=== PATIENT | male | born 1975 | race Hispanic/Latino ===

== ENCOUNTER 2021-06-25 17:14 | Emergency (ER) | payer MEDICAID ==
[~2021-06-25] VITALS: Ht 175.3 cm; Wt 72.6 kg
[2021-06-25 17:24] VITALS: BP 91/62
[2021-06-25 17:37] LABS: BASOPHILS % (AUTO) 1.2 % (0.0-5.0); EOSINOPHILS % (AUTO) 2.7 % (0.0-8.0); HEMATOCRIT 43.8 % (42-54); LYMPHOCYTES % (AUTO) 29.4 % (21.0-51.0); MEAN CORPUSCULAR HEMOGLOBIN 30.7 pg (27.0-33.0); MEAN CORPUSCULAR HGB CONC 34.5 g/dL (32.0-36.0); MONOCYTES % (AUTO) 8.3 % (3.0-13.0); NEUTROPHILS % (AUTO) 57.9 % (40.0-77.0); PLATELET COUNT (AUTO) 282 K/uL (130-400); RED BLOOD CELL COUNT(AUTO) 4.92 MIL/uL (4.50-6.20); RED CELL DISTRIBUTION WIDTH 11.9 % (11.0-15.5); WHITE BLOOD COUNT (AUTO) 8.5 K/uL (4.8-10.8)
[2021-06-25 17:53] LABS: ALBUMIN 3.2 g/dL (3.5-5.0); BILIRUBIN,TOTAL 0.7 mg/dL (0.2-1.0); CREATININE 1.6 mg/dL (0.5-1.5); POTASSIUM 4.6 mmol/L (3.5-5.1)
[2021-06-25 18:31] VITALS: BP 113/68
[2021-06-25 18:32] VITALS: BP 90/59
[2021-06-25 18:33] VITALS: BP 70/29
[2021-06-25] MEDS ORDERED: 0.9%NACL 1000ML 1,000 ML IV ONE ×5 (18:39→19:30)
[2021-06-25] MEDS ORDERED: INSULIN HUMULIN R 100 UNIT/ML 3ML IV ONE ×2 (19:00→19:30)
[2021-06-25 19:44] LABS: ABG HCO3 25.4 mmol/L (21.0-28.0); ABG OXYGEN SATURATION 85.9 % (95.0-99.0); ABG PCO2 44 mmHg (35-48)
[2021-06-25 21:08] LABS: APPEARANCE,URINE Clear (CLEAR); BILIRUBIN,URINE Negative (NEGATIVE); COLOR,URINE Yellow (YELLOW); GLUCOSE, URINE (UA) >=1000 mg/dL (NEGATIVE); KETONES,URINE Trace mg/dL (NEGATIVE); LEUKOCYTE ESTERASE ,URINE Negative (NEGATIVE); NITRATE,URINE Negative (NEGATIVE); OCCULT BLOOD,URINE Trace (NEGATIVE); PROTEIN,URINE POS 2+ mg/dL (NEGATIVE); UROBILINOGEN,URINE 0.2 mg/dL (0.2-1.0)
[2021-06-25 21:15] LABS: BACTERIA,URINE Rare /HPF (None Seen); RBC,URINE 0-1 /HPF (0-1); SQUAMOUS EPITHELIAL CELL,UR Few /HPF (0-2); WBC,URINE 0-1 /HPF (0-1)
== END 2021-06-25 22:24 | disposition home or self-care (01) ==
LOC: EDH 17:14
DX: I95.1 Orthostatic hypotension (principal); E10.65 Type 1 diabetes mellitus with hyperglycemia; R42 Dizziness and giddiness; Z79.84 Long term (current) use of oral hypoglycemic drugs
CPT/HCPCS: 36415; 36600; 70450; 71045; 80053; 81001; 82803; 82948 ×2; 84484; 85025; 93005 ×3; 96361; 96374; 96376; 99285; J1815 ×2; J7030 ×2

== ENCOUNTER 2021-11-26 17:51 | Observation (INO) | payer MEDICAID ==
[~2021-11-26] VITALS: Ht 175.3 cm; Wt 69.8 kg
[2021-11-26] MEDS ORDERED: 1/2 NS 1000ML 1,000 ML IV SCH (18:35)
[2021-11-26 18:49] LABS: BASOPHILS % (AUTO) 1.2 % (0.0-5.0); EOSINOPHILS % (AUTO) 3.5 % (0.0-8.0); LYMPHOCYTES % (AUTO) 24.5 % (21.0-51.0); MEAN CORPUSCULAR HGB CONC 34.6 g/dL (32.0-36.0); MEAN CORPUSCULAR VOLUME 89.4 fL (79-99); MONOCYTES % (AUTO) 9.9 % (3.0-13.0); NEUTROPHILS % (AUTO) 60.6 % (40.0-77.0); PLATELET COUNT (AUTO) 236 K/uL (130-400); RED BLOOD CELL COUNT(AUTO) 4.36 MIL/uL (4.50-6.20); RED CELL DISTRIBUTION WIDTH 11.9 % (11.0-15.5); WHITE BLOOD COUNT (AUTO) 8.7 K/uL (4.8-10.8)
[2021-11-26] MEDS ORDERED: DIPHENHYDRAMINE HCL 25 MG CAPSULE PO PRN (19:00)
[2021-11-26] MEDS ORDERED: GUAIFENESIN-DM 200/20 MG 10 ML PO PRN (19:00)
[2021-11-26] MEDS ORDERED: ONDANSETRON 4MG INJ IVP PRN (19:00)
[2021-11-26] MEDS ORDERED: ZOLPIDEM TARTRATE 5 MG TAB PO PRN (19:00)
[2021-11-26] MEDS ORDERED: 0.9%NACL 1000ML 1,000 ML IV ONE (19:02)
[2021-11-26 19:15] LABS: ALBUMIN 2.9 g/dL (3.5-5.0); BILIRUBIN,TOTAL 0.3 mg/dL (0.2-1.0); CREATININE 1.3 mg/dL (0.5-1.5); POTASSIUM 5.9 mmol/L (3.5-5.1)
[2021-11-26] MEDS: 0.9%NACL 1000ML 1,000 ML IV SCH (19:47)
[2021-11-26] MEDS ORDERED: INSULIN HUMULIN R 100 UNIT/ML 3ML SQ SCH (21:00)
[2021-11-27] MEDS: 0.9%NACL 1000ML 1,000 ML IV SCH (00:24)
[2021-11-27] MEDS ORDERED: 0.9%NACL 1000ML 1,000 ML IV SCH (00:30)
[2021-11-27 00:45] VITALS: BP 107/65
[2021-11-27 04:00] VITALS: BP 111/65
[2021-11-27 05:35] LABS: BASOPHILS % (AUTO) 0.7 % (0.0-5.0); EOSINOPHILS % (AUTO) 2.6 % (0.0-8.0); HEMATOCRIT 35.9 % (42-54); LYMPHOCYTES % (AUTO) 22.9 % (21.0-51.0); MEAN CORPUSCULAR HEMOGLOBIN 30.7 pg (27.0-33.0); MEAN CORPUSCULAR HGB CONC 33.1 g/dL (32.0-36.0); MEAN CORPUSCULAR VOLUME 92.5 fL (79-99); MONOCYTES % (AUTO) 7.9 % (3.0-13.0); NEUTROPHILS % (AUTO) 65.6 % (40.0-77.0); PLATELET COUNT (AUTO) 188 K/uL (130-400); RED BLOOD CELL COUNT(AUTO) 3.88 MIL/uL (4.50-6.20); RED CELL DISTRIBUTION WIDTH 11.9 % (11.0-15.5); WHITE BLOOD COUNT (AUTO) 10.8 K/uL (4.8-10.8)
[2021-11-27] MEDS ORDERED: INSLAN SQ (05:51)
[2021-11-27 05:53] LABS: POTASSIUM 4.5 mmol/L (3.5-5.1)
[2021-11-27 05:54] LABS: ALBUMIN 2.3 g/dL (3.5-5.0); BILIRUBIN,TOTAL 0.4 mg/dL (0.2-1.0); CREATININE 0.9 mg/dL (0.5-1.5); TOTAL PROTEIN, SERUM 5.9 g/dL (6.0-8.3)
[2021-11-27] MEDS: INSULIN HUMULIN R 100 UNIT/ML 3ML SQ SCH ×2 (07:44→12:40)
[2021-11-27 08:16] VITALS: BP 140/83
[2021-11-27 10:47] VITALS: BP 136/78
[2021-11-27] MEDS ORDERED: INSULIN GLARGINE 100 UNITS/ML 10 ML VIAL SQ SCH (12:00)
== END 2021-11-27 12:53 | disposition home or self-care (01) ==
LOC: EDH 17:51 → EDHIP 17:52 → INTOOBSV 17:52 → 3CH 11-27 00:40
PROVIDERS: ADMIT Internal Medicine; ATTEND Internal Medicine
DX: E11.65 Type 2 diabetes mellitus with hyperglycemia (principal); E86.0 Dehydration; E11.43 Type 2 diabetes mellitus with diabetic autonomic (poly)neuropathy; K31.84 Gastroparesis; K86.1 Other chronic pancreatitis; Z91.19 Patient's noncompliance with other medical treatment and regimen; Z79.899 Other long term (current) drug therapy; Z98.890 Other specified postprocedural states
CPT/HCPCS: 36415 ×2; 80053 ×2; 82948 ×6; 83690; 85025 ×2; 96360; 96361 ×2; 96372 ×2; G0378 ×18; J1815 ×3; J7030 ×2

== ENCOUNTER 2023-07-31 12:18 | Observation (INO) | payer MEDICAID ==
[~2023-07-31] VITALS: Ht 175.3 cm; Wt 68.0 kg
[~2023-07-31 12:18] MED LIST: INSLAN SQ
[2023-07-31] MEDS ORDERED: ACETAMINOPHEN 325 MG TAB PO PRN (13:00)
[2023-07-31] MEDS ORDERED: 0.9%NACL 1000ML 2,000 ML IV STA (13:00)
[2023-07-31] MEDS ORDERED: ONDANSETRON 4MG INJ IVP PRN (13:00)
[2023-07-31] MEDS ORDERED: LACTULOSE 20 GM/30 ML UDCUP PO PRN (13:00)
[2023-07-31] MEDS: 1/2 NS 1000ML 1,000 ML IV SCH ×2 (13:00→20:34)
[2023-07-31 13:34] LABS: BASOPHILS % (AUTO) 1.2 % (0.0-5.0); EOSINOPHILS # (AUTO) 0.16 K/uL (0.00-0.70); EOSINOPHILS % (AUTO) 1.9 % (0.0-8.0); HEMATOCRIT 40.8 % (42-54); IMMATURE GRANULOCYTE ABSOLUTE 0.04 K/uL (0-1); LYMPHOCYTES # (AUTO) 1.7 K/uL (1.0-4.8); LYMPHOCYTES % (AUTO) 20.5 % (21.0-51.0); MEAN CORPUSCULAR HEMOGLOBIN 29.8 pg (27.0-33.0); MEAN CORPUSCULAR HGB CONC 34.1 g/dL (32.0-36.0); MEAN CORPUSCULAR VOLUME 87.6 fL (79-99); MONOCYTES # (AUTO) 0.7 K/uL (0.1-1.0); MONOCYTES % (AUTO) 8.2 % (3.0-13.0); NEUTROPHILS # (AUTO) 5.7 K/uL (1.8-7.7); NEUTROPHILS % (AUTO) 67.7 % (40.0-77.0); PLATELET COUNT (AUTO) 238 K/uL (130-400); RED BLOOD CELL COUNT(AUTO) 4.66 MIL/uL (4.50-6.20); WHITE BLOOD COUNT (AUTO) 8.4 K/uL (4.8-10.8)
[2023-07-31 13:42] LABS: ALBUMIN 2.4 g/dL (3.5-5.0); CREATININE 2.1 mg/dL (0.5-1.5); POTASSIUM 4.6 mmol/L (3.5-5.1)
[2023-07-31 13:42] LABS: ABG BASE EXCESS 4.1 mmol/L (-2.0-3.0); ABG HCO3 28.5 mmol/L (21.0-28.0); ABG OXYGEN SATURATION 97.1 % (95.0-99.0); ABG PCO2 42 mmHg (35-48); ABG PH 7.448 (7.35-7.450); DEVICE COMMENT RR RA; PO2, ARTERIAL BG 89.1 mmHg (83.0-108.0); VENT MODE, BG RA (ROOM AIR)
[2023-07-31 13:44] LABS: INR < 0.93 (0.85-1.15); PROTHROMBIN TIME 10.3 SEC (9.6-11.6)
[2023-07-31 13:51] LABS: BILIRUBIN,TOTAL 0.5 mg/dL (0.2-1.0); MAGNESIUM 2.2 mg/dL (1.80-2.40); TOTAL PROTEIN, SERUM 6.9 g/dL (6.0-8.3)
[2023-07-31] MEDS ORDERED: IOHEXOL-350 50ML VIAL IV ONE (15:56)
[2023-07-31] MEDS: INSULIN HUMULIN R 100 UNIT/ML 3ML SQ SCH ×2 (16:34→19:40)
[2023-07-31 16:45] VITALS: O2SAT 98
[2023-07-31 16:55] VITALS: BP 158/103; PULSE 106; RESP 22
[2023-07-31 20:09] VITALS: BP 132/77; PULSE 92; RESP 20
[2023-07-31 20:45] VITALS: O2SAT 98
[2023-07-31 23:40] VITALS: BP 113/61; PULSE 94; RESP 20
[2023-08-01] VITALS (17 sets, daily range): BP systolic 137–178; BP diastolic 69–103; PULSE 83–101; RESP 10–18; O2SAT 98–100
[2023-08-01] MEDS: 1/2 NS 1000ML 1,000 ML IV SCH ×2 (02:23→10:06)
[2023-08-01] MEDS: INSULIN HUMULIN R 100 UNIT/ML 3ML SQ SCH ×4 (06:09→20:37)
[2023-08-01] MEDS ORDERED: PROPOFOL 10 MG/ML 20ML VIAL IV ONE (07:08)
[2023-08-01] MEDS ORDERED: PANTOPRAZOLE 40 MG/VIAL IVP SCH (09:00)
[2023-08-01] MEDS ORDERED: PANTOPRAZOLE 40 MG TAB DR PO SCH (09:30)
[2023-08-02] VITALS: BP 137/80; PULSE 98; RESP 18
[2023-08-02 03:55] VITALS: BP 117/71; PULSE 91; RESP 14
[2023-08-02 06:42] LABS: BASOPHILS # (AUTO) 0.11 K/uL (0.00-0.20); BASOPHILS % (AUTO) 1.2 % (0.0-5.0); EOSINOPHILS # (AUTO) 0.34 K/uL (0.00-0.70); EOSINOPHILS % (AUTO) 3.8 % (0.0-8.0); HEMATOCRIT 37.9 % (42-54); IMMATURE GRANULOCYTE ABSOLUTE 0.04 K/uL (0-1); MEAN CORPUSCULAR HEMOGLOBIN 29.8 pg (27.0-33.0); MEAN CORPUSCULAR VOLUME 90.5 fL (79-99); MONOCYTES # (AUTO) 0.9 K/uL (0.1-1.0); MONOCYTES % (AUTO) 10.3 % (3.0-13.0); NEUTROPHILS # (AUTO) 4.5 K/uL (1.8-7.7); NEUTROPHILS % (AUTO) 50.3 % (40.0-77.0); PLATELET COUNT (AUTO) 230 K/uL (130-400); RED BLOOD CELL COUNT(AUTO) 4.19 MIL/uL (4.50-6.20); RED CELL DISTRIBUTION WIDTH 12.8 % (11.0-15.5); WHITE BLOOD COUNT (AUTO) 8.9 K/uL (4.8-10.8)
[2023-08-02] MEDS: INSULIN HUMULIN R 100 UNIT/ML 3ML SQ SCH ×2 (06:42→11:24)
[2023-08-02 06:55] LABS: ALBUMIN 1.9 g/dL (3.5-5.0); BILIRUBIN,TOTAL 0.4 mg/dL (0.2-1.0); CREATININE 1.4 mg/dL (0.5-1.5); POTASSIUM 4.9 mmol/L (3.5-5.1); TOTAL PROTEIN, SERUM 5.9 g/dL (6.0-8.3)
[2023-08-02 08:00] VITALS: BP 141/95; PULSE 90; RESP 16
[2023-08-02 08:05] VITALS: O2SAT 98
[2023-08-02] MEDS ORDERED: PANTOPRAZOLE 40 MG TAB DR PO SCH (09:00)
[2023-08-02 11:40] VITALS: BP 116/63; PULSE 89; RESP 16
[2023-08-03] MEDS ORDERED: INSULIN GLARGINE 100 UNITS/ML 10 ML VIAL SQ SCH (12:00)
== END 2023-08-02 14:45 | disposition home or self-care (01) ==
LOC: EDH 12:18 → EDHIP 12:19 → UNDOADMOB 12:35 → EDHIP 12:35 → 3DH 16:55
PROVIDERS: ADMIT Internal Medicine; ATTEND Internal Medicine
DX: K21.00 Gastro-esophageal reflux disease with esophagitis, without bleeding (principal); K29.00 Acute gastritis without bleeding; K29.50 Unspecified chronic gastritis without bleeding; K44.9 Diaphragmatic hernia without obstruction or gangrene; K92.0 Hematemesis; E87.1 Hypo-osmolality and hyponatremia; K31.84 Gastroparesis; E10.43 Type 1 diabetes mellitus with diabetic autonomic (poly)neuropathy; E10.65 Type 1 diabetes mellitus with hyperglycemia; E86.0 Dehydration; I10 Essential (primary) hypertension; Z79.4 Long term (current) use of insulin; Z91.148 Patient's other noncompliance with medication regimen for other reason
CPT/HCPCS: 96372 ×3; 96360; 96361 ×2; 82550; 83735; 83874; 84484; 80053 ×2; 82803; 85025 ×2; 85610; 85730; 82948 ×12; 36415 ×2; 71047; 71260; 93005; 36600; 88305; 88312; 43239; G0378 ×49; G0379; Q9967; J1815 ×3; J3490; A4620; A4215 ×2; A4223; A7002; A4222; A4221; A4663; A4216; J7030; J2704

== ENCOUNTER 2023-12-08 11:36 | Observation (INO) | payer MEDICAID ==
[~2023-12-08] VITALS: Ht 175.3 cm; Wt 70.8 kg
[2023-12-08 12:21] LABS: BASOPHILS # (AUTO) 0.08 K/uL (0.00-0.20); EOSINOPHILS # (AUTO) 0.21 K/uL (0.00-0.70); EOSINOPHILS % (AUTO) 2.5 % (0.0-8.0); HEMATOCRIT 39.8 % (42-54); IMMATURE GRANULOCYTE ABSOLUTE 0.03 K/uL (0-1); LYMPHOCYTES % (AUTO) 24.5 % (21.0-51.0); MEAN CORPUSCULAR HEMOGLOBIN 29.4 pg (27.0-33.0); MEAN CORPUSCULAR HGB CONC 34.2 g/dL (32.0-36.0); MEAN CORPUSCULAR VOLUME 86.1 fL (79-99); MONOCYTES # (AUTO) 0.8 K/uL (0.1-1.0); MONOCYTES % (AUTO) 9.2 % (3.0-13.0); NEUTROPHILS # (AUTO) 5.2 K/uL (1.8-7.7); NEUTROPHILS % (AUTO) 62.4 % (40.0-77.0); PLATELET COUNT (AUTO) 241 K/uL (130-400); RED BLOOD CELL COUNT(AUTO) 4.62 MIL/uL (4.50-6.20); RED CELL DISTRIBUTION WIDTH 12.6 % (11.0-15.5); WHITE BLOOD COUNT (AUTO) 8.3 K/uL (4.8-10.8)
[2023-12-08 13:16] LABS: CREATININE 1.5 mg/dL (0.5-1.5); POTASSIUM 4.4 mmol/L (3.5-5.1)
[2023-12-08 13:21] LABS: ALBUMIN 1.8 g/dL (3.5-5.0); BILIRUBIN,TOTAL 0.2 mg/dL (0.2-1.0); TOTAL PROTEIN, SERUM 6.1 g/dL (6.0-8.3)
[2023-12-08 14:47] LABS: BILIRUBIN,URINE NEGATIVE (NEGATIVE); KETONES,URINE NEGATIVE (NEGATIVE); UROBILINOGEN,URINE 0.2 mg/dL (0.2-1.0)
[2023-12-08 14:48] LABS: ADD UA MICROSCOPIC YES
[2023-12-08 15:34] LABS: BACTERIA,URINE RARE /HPF (None Seen); MUCUS,URINE RARE LPF (None Seen); OTHER CASTS, URINE 7 /LPF (None Seen); SQUAMOUS EPITHELIAL CELL,UR RARE /HPF (0-2); YEAST,URINE BUDDING RARE /HPF (None Seen)
[2023-12-08 15:44] LABS: APPEARANCE,URINE CLEAR (CLEAR); COLOR,URINE LIGHT-YELLOW (YELLOW); PROTEIN,URINE 300 mg/dL (NEGATIVE)
[2023-12-08 15:45] LABS: GLUCOSE, URINE (UA) >=1000 mg/dL (NEGATIVE); LEUKOCYTE ESTERASE ,URINE NEGATIVE Leu/uL (NEGATIVE); NITRATE,URINE NEGATIVE (NEGATIVE); OCCULT BLOOD,URINE SMALL (NEGATIVE)
[2023-12-08 16:23] LABS: CHOLESTEROL 269 mg/dL (<200); HDL CHOLESTEROL 82 mg/dL (29-71); LDL DIRECT 154 mg/dL (0-99); TRIGLYCERIDES 220 mg/dL (30-200)
[2023-12-08] MEDS: 1/2 NS 1000ML 1,000 ML IV SCH (16:31)
[2023-12-08] MEDS: CEFTRIAXONE 1G VIAL IVPB SCH (16:32)
[2023-12-08] MEDS: CEFTRIAXONE 1G VIAL IVPB ONE (16:32)
[2023-12-08] MEDS ORDERED: GADOTERATE MEGLUMINE 5 MMOL/10 ML VIAL IV ONE (16:51)
[2023-12-09 06:38] LABS: BASOPHILS # (AUTO) 0.11 K/uL (0.00-0.20); BASOPHILS % (AUTO) 1.5 % (0.0-5.0); EOSINOPHILS # (AUTO) 0.25 K/uL (0.00-0.70); EOSINOPHILS % (AUTO) 3.3 % (0.0-8.0); HEMATOCRIT 41.2 % (42-54); IMMATURE GRANULOCYTE ABSOLUTE 0.02 K/uL (0-1); LYMPHOCYTES # (AUTO) 2.5 K/uL (1.0-4.8); LYMPHOCYTES % (AUTO) 33.2 % (21.0-51.0); MEAN CORPUSCULAR HEMOGLOBIN 29.1 pg (27.0-33.0); MEAN CORPUSCULAR VOLUME 85.7 fL (79-99); MONOCYTES # (AUTO) 0.7 K/uL (0.1-1.0); MONOCYTES % (AUTO) 8.7 % (3.0-13.0); PLATELET COUNT (AUTO) 243 K/uL (130-400); RED BLOOD CELL COUNT(AUTO) 4.81 MIL/uL (4.50-6.20); RED CELL DISTRIBUTION WIDTH 12.4 % (11.0-15.5); WHITE BLOOD COUNT (AUTO) 7.5 K/uL (4.8-10.8)
[2023-12-09 06:57] LABS: ALBUMIN 1.7 g/dL (3.5-5.0); BILIRUBIN,TOTAL 0.2 mg/dL (0.2-1.0); CREATININE 1.3 mg/dL (0.5-1.5); POTASSIUM 4.1 mmol/L (3.5-5.1)
[2023-12-09] MEDS ORDERED: INSLAN SQ (20:49)
[2023-12-10 02:35] VITALS: BP 148/98; PULSE 86; RESP 20; O2SAT 94
[2023-12-10 04:00] VITALS: BP 143/83; PULSE 85; RESP 20
[2023-12-10] MEDS: INSULIN HUMULIN R 100 UNIT/ML 3ML SQ SCH (06:55)
[2023-12-10 07:42] VITALS: BP 154/94; PULSE 90; RESP 18
[2023-12-10 08:00] VITALS: O2SAT 97
[2023-12-10] MEDS: INSULIN GLARGINE 100 UNITS/ML 10 ML VIAL SQ SCH (09:22)
[2023-12-10 12:00] VITALS: BP 135/83; PULSE 90; RESP 18
[2023-12-10 16:00] VITALS: BP 148/79; PULSE 86; RESP 18
== END 2023-12-10 18:00 | disposition home or self-care (01) ==
LOC: EDH 11:36 → EDHIP 11:37 → 3CH 12-10 02:02
PROVIDERS: ADMIT Internal Medicine; ATTEND Internal Medicine
DX: R20.0 Anesthesia of skin (principal); R55 Syncope and collapse; R42 Dizziness and giddiness; E10.9 Type 1 diabetes mellitus without complications; I10 Essential (primary) hypertension; Z79.4 Long term (current) use of insulin
CPT/HCPCS: 99284; 80061; 80053 ×2; 85025 ×2; 87088; 82948 ×4; 81001 ×2; 36415 ×2; 70450; 76770; 93880; 70553; 96374; 93005; 93306; 93356; 96361 ×2; 96376; 96372; G0378 ×49; J0696 ×2; A9575

== ENCOUNTER 2024-08-09 17:56 | Emergency (ER) | payer MEDICAID ==
[~2024-08-09] VITALS: Ht 172.7 cm; Wt 68.0 kg
[~2024-08-09 17:56] MED LIST changes: +SODI10PO2 PO
[2024-08-09 18:27] LABS: BASOPHILS % (AUTO) 1.1 % (0.0-5.0); EOSINOPHILS # (AUTO) 0.11 K/uL (0.00-0.70); EOSINOPHILS % (AUTO) 1.2 % (0.0-8.0); HEMATOCRIT 40.1 % (42-54); IMMATURE GRANULOCYTE ABSOLUTE 0.05 K/uL (0-1); LYMPHOCYTES % (AUTO) 22.4 % (21.0-51.0); MEAN CORPUSCULAR HEMOGLOBIN 28.8 pg (27.0-33.0); MEAN CORPUSCULAR HGB CONC 33.7 g/dL (32.0-36.0); MEAN CORPUSCULAR VOLUME 85.7 fL (79-99); MONOCYTES # (AUTO) 0.6 K/uL (0.1-1.0); MONOCYTES % (AUTO) 6.4 % (3.0-13.0); NEUTROPHILS # (AUTO) 6.2 K/uL (1.8-7.7); NEUTROPHILS % (AUTO) 68.4 % (40.0-77.0); PLATELET COUNT (AUTO) 303 K/uL (130-400); RED BLOOD CELL COUNT(AUTO) 4.68 MIL/uL (4.50-6.20); RED CELL DISTRIBUTION WIDTH 12.3 % (11.0-15.5); WHITE BLOOD COUNT (AUTO) 9.1 K/uL (4.8-10.8)
[2024-08-09 18:50] LABS: ALBUMIN 1.6 g/dL (3.5-5.0); BILIRUBIN,TOTAL 0.3 mg/dL (0.2-1.0); CREATININE 2.4 mg/dL (0.5-1.3); POTASSIUM 4.5 mmol/L (3.5-5.1); TOTAL PROTEIN, SERUM 6.3 g/dL (6.0-8.3)
[2024-08-09] MEDS ORDERED: D5W-1/2 NS/20MEQ KCL 1,000 ML IV SCH (19:00)
[2024-08-09] MEDS ORDERED: INSULIN REGULAR, HUMAN 3ML 100 UNIT in 0.9%NACL 100ML 100 ML IV SCH (19:00)
[2024-08-09] MEDS ORDERED: PoTASSium chloRIDE 10MEQ/100ML 100 ML IV PRN (19:00)
[2024-08-09] MEDS ORDERED: MAGNESIUM 2GM PREMIX 50ML 50 ML IV SCH (19:00)
[2024-08-09] MEDS ORDERED: 0.9%NACL 1000ML 1,000 ML IV SCH (19:00)
[2024-08-09 21:07] LABS: ABG OXYGEN SATURATION 24.5 % (94.0-98.0); BASE EXCESS,VENOUS BLOOD GAS 0.3 (-2.0-3.0); DEVICE COMMENT VENOUS; HCO3,VENOUS BLOOD GAS 26.3 (22.0-29.0); PCO2,VENOUS BLOOD GAS 48 (38-54); PH,VENOUS BLOOD GAS 7.361 (7.320-7.430); PO2,VENOUS BLOOD GAS 17.7 mmHg (23.0-48.0); VENT MODE, BG RA (ROOM AIR)
[2024-08-09] MEDS: NS-20 MEQ KCL 1000ML 1,000 ML IV ONE (21:18)
[2024-08-09] MEDS: 0.9%NACL 1000ML 1,000 ML IV ONE (21:30)
[2024-08-09] MEDS ORDERED: NS-20 MEQ KCL 1000ML 1,000 ML IV PRN (21:30)
[2024-08-09] MEDS: INSULIN humuLIN R 100 UNIT/ML 3ML SQ STA (21:30)
[2024-08-09] MEDS: INSULIN humuLIN R 100 UNIT/ML 3ML IV ONE (21:31)
[2024-08-09 23:09] VITALS: BP 127/60; PULSE 96; RESP 18; TEMP 98.6; O2SAT 99
== END 2024-08-09 23:11 | disposition home or self-care (01) ==
LOC: EDH 17:56
DX: E11.65 Type 2 diabetes mellitus with hyperglycemia (principal); I10 Essential (primary) hypertension; Z79.4 Long term (current) use of insulin; Z79.899 Other long term (current) drug therapy
CPT/HCPCS: 99285; 96374; 83735; 84484; 80053; 82803; 85025; 82948 ×2; 82010; 36415; 93005; 36600; J1815; J7030; J3480

== ENCOUNTER 2024-11-18 16:00 | Emergency (ER) | payer MEDICAID ==
[~2024-11-18] VITALS: Ht 175.3 cm; Wt 70.3 kg
[2024-11-18] MEDS: ondanSETRON 4MG INJ IVP ONE (17:05)
[2024-11-18] MEDS: diazePAM 5 MG TAB PO ONE (17:06)
[2024-11-18] MEDS: mecliZINE HCL 25 MG TABLET PO ONE (17:06)
[2024-11-18] MEDS: 0.9%NACL 1000ML 1,000 ML IV ONE (17:06)
[2024-11-18 17:28] LABS: BASOPHILS % (AUTO) 0.8 % (0.0-5.0); EOSINOPHILS # (AUTO) 0.13 K/uL (0.00-0.70); EOSINOPHILS % (AUTO) 1.1 % (0.0-8.0); HEMATOCRIT 39.9 % (42-54); IMMATURE GRANULOCYTE ABSOLUTE 0.07 K/uL (0-1); LYMPHOCYTES # (AUTO) 2.5 K/uL (1.0-4.8); LYMPHOCYTES % (AUTO) 20.2 % (21.0-51.0); MEAN CORPUSCULAR HEMOGLOBIN 28.4 pg (27.0-33.0); MEAN CORPUSCULAR HGB CONC 33.6 g/dL (32.0-36.0); MEAN CORPUSCULAR VOLUME 84.5 fL (79-99); MONOCYTES # (AUTO) 0.7 K/uL (0.1-1.0); MONOCYTES % (AUTO) 5.3 % (3.0-13.0); NEUTROPHILS # (AUTO) 8.8 K/uL (1.8-7.7); PLATELET COUNT (AUTO) 385 K/uL (130-400); RED BLOOD CELL COUNT(AUTO) 4.72 MIL/uL (4.50-6.20); RED CELL DISTRIBUTION WIDTH 12.8 % (11.0-15.5); WHITE BLOOD COUNT (AUTO) 12.2 K/uL (4.8-10.8)
[2024-11-18 17:40] LABS: CREATININE 2.6 mg/dL (0.5-1.3); POTASSIUM 4.5 mmol/L (3.5-5.1)
--- NOTE | 2024-11-18 17:52 | ERN ---
General Chief Complaint: Dizzy/Light Headed Stated Complaint: VERTIGO Time Seen by MD: 16:02 Time Seen by Midlevel: 16:02 Source: patient History of Present Illness Initial Comments Patient is a 49-year-old male with a past medical history of vertigo presenting to the emergency department with dizziness has been ongoing for the last of beats. Patient reports being at [facility] recently was admitted for dizziness. He had a CT scan and MRI performed which were all. He was evaluated by a neurologist who diagnosed him with a vertical. He was discharged home on meclizine. Today reports the meclizine is not helping him so he decided to report to the ER for further evaluation. No other symptoms reported at this time. Allergies: Coded Allergies: No Allergy Information Available (Verified Allergy, Unknown, 06/25/21) No Known Drug Allergies (Unverified Allergy, Unknown, 08/09/24) Home Meds Active Scripts Sodium Zirconium Cyclosilicate (Lokelma) 10 Gram Powd.pack, 10 GM PO DAILY for 5 Days, #5 BOTTLE Prov:STEVEN MURO MD 04/19/24 Reported Medications Insulin Glargine,Hum.rec.anlog (Lantus) 100 Unit/Ml Inj, 30 UNITS SQ DAILY, ML 12/09/23 Past Medical History Past Medical History: Diabetes-Type II, Hypertension Past Surgical History: None Social History Social History: Lives with family ROS Dictation CONSTITUTIONAL: Negative except for HPI HEAD/FACE: Negative except for HPI EENT: Negative except for HPI RESPIRATORY: Negative except for HPI GASTROINTESTINAL/ABDOMINAL: Negative except for HPI GENITOURINARY: Negative except for HPI MUSCULOSKELETAL: Negative except for HPI INTEGUMENTARY: Negative except for HPI NEUROLOGICAL/PSYCH: Negative except for HPI HEMATOLOGIC/LYMPHATIC: Negative except for HPI All Systems Negative, Except as noted above. 13 point review of systems assessed and all negative except for above. Physical Exam Physical Exam Dictation Vital Signs reviewed General Appearance: Alert, oriented x 3, no acute distress, well developed, nourished. Head and Face: non-traumatic. Eyes: PERRL, pink conjunctivas, eyelid no trauma, anterior chamber with arcus senilis. Ears: Pinnas intact and no signs of trauma or erythema ear canals clear and no discharge TM no erythema Nose: No discharge, no bleeding. Oropharynx: Mouth normal, tongue pink, pharynx clear,no erythema, tonsils no exudates, no abscesses noted, mucous membrane moist Neck: Supple, non-tender, no thyromegaly, no masses, no JVD, no bruits Breast:Deferred Chest:No tenderness, no crepitus, no paradoxical movement, no retractions Lungs:Clear, well-ventilated, symmetric, no rales, no wheezing, no rhonchi, no stridor, good breath sounds bilaterally Heart: Regular rate, regular rhythm, no murmur, no gallops Vascular: no peripheral edema, Abdomen: Soft, positive bowel sounds, nondistended, no guarding, nontender, no rebound, no masses no hepatomegaly, no splenomegaly, no Hernadez's sign, no hernias. Rectal: Deferred Genital: Deferred Neurological: Normal speech, motor function intact, sensory function intact Musculoskeletal: Neck nontender, full range of motion, back nontender, full range of motion, Extremities: nontender, full range of motion Skin: Color pink, dry, no turgor, no rash, no lacerations, no abrasions, no contusions. Lymphatic: Deferred Results Laboratory and Microbiology Lab and Micro Result Laboratory Tests Test 11/18/24 17:16 White Blood Count 12.2 K/uL (4.8-10.8) H Red Blood Count 4.72 MIL/uL (4.50-6.20) Hemoglobin 13.4 g/dL (14.0-18.0) L Hematocrit 39.9 % (42-54) L Mean Corpuscular Volume 84.5 fL (79-99) Mean Corpuscular Hemoglobin 28.4 pg (27.0-33.0) Mean Corpuscular Hemoglobin Concent 33.6 g/dL (32.0-36.0) Red Cell Distribution Width 12.8 % (11.0-15.5) Platelet Count 385 K/uL (130-400) Mean Platelet Volume 9.2 fL (7.5-10.5) Immature Granulocyte % (Auto) 0.6 % (0-1) Neutrophils (%) (Auto) 72.0 % (40.0-77.0) Lymphocytes (%) (Auto) 20.2 % (21.0-51.0) L Monocytes (%) (Auto) 5.3 % (3.0-13.0) Eosinophils (%) (Auto) 1.1 % (0.0-8.0) Basophils (%) (Auto) 0.8 % (0.0-5.0) Neutrophils # (Auto) 8.8 K/uL (1.8-7.7) H Lymphocytes # (Auto) 2.5 K/uL (1.0-4.8) Monocytes # (Auto) 0.7 K/uL (0.1-1.0) Eosinophils # (Auto) 0.13 K/uL (0.00-0.70) Basophils # (Auto) 0.10 K/uL (0.00-0.20) Absolute Immature Granulocyte (auto 0.07 K/uL (0-1) Nucleated Red Blood Cells 0.0 % (0.0-0.19) Sodium Level 136 mmol/L (136-145) Potassium Level 4.5 mmol/L (3.5-5.1) Chloride Level 101 mmol/L (101-111) Carbon Dioxide Level 31 mmol/L (21-32) Blood Urea Nitrogen 33 mg/dL (7-18) H Creatinine 2.6 mg/dL (0.5-1.3) H Glomerular Filtration Rate Calc 29 mL/min (>90) Random Glucose 386 mg/dL (70-105) H Total Calcium 8.7 mg/dL (8.5-10.1) Labs Reviewed?: Yes MDM MDM: Patient is a 49-year-old male with a past medical history of vertigo presenting to the emergency department with dizziness has been ongoing for the last of beats. Patient reports being at [facility] recently was admitted for dizziness. He had a CT scan and MRI performed which were all. He was evaluated by a neurologist who diagnosed him with a vertical. He was discharged home on meclizine. Today reports the meclizine is not helping him so he decided to report to the ER for further evaluation. No other symptoms reported at this time. On physical examination patient is in no acute distress. He is ambulatory without assistance with a normal gait. His GCS is 15. His blood work is stable. Patient was observed in the ER and means stable and asy mptomatic. He was given meclizine and Valium. On repeat examination he does report feeling significantly improved. He states his dizziness has completely resolved. Differential diagnosis: Vertigo, electrolyte abnormality, anemia, dehydration There are no social concerns with this patient. Prescription drug management Prescriptions will include: Meclizine Medical management and examination interpretation discussions were had by me with other qualified healthcare professionals as indicated for the patient's care. ED Course Orders Procedure Category Date Status Time Meclizine Hcl 25 Mg PHA 11/18/24 Complete (Antivert 25 Mg) 16:30 0.9%Nacl 1000ml (Ns PHA 11/18/24 Complete 1000ml) 16:30 Cbc With Differential LAB 11/18/24 Complete 16:53 Basic Metabolic Panel LAB 11/18/24 Complete 16:53 Diazepam 5mg Tab PHA 11/18/24 Complete (Valium 5 Mg Tab) 17:00 Ondansetron 4mg Inj PHA 11/18/24 Complete (Zofran 4mg Inj) 17:00 Current Medications Medications (Trade) Dose Ordered Sig/Mark Route PRN Reason Start Time Stop Time Status Last Admin Dose Admin Diazepam (VALium 5 mg TAB) 5 mg ONCE ONCE PO 11/18/24 17:00 11/18/24 17:01 DC 11/18/24 17:06 Meclizine HCl (ANTIvert 25 mg) 25 mg ONCE ONCE PO 11/18/24 16:30 11/18/24 16:31 DC 11/18/24 17:06 Ondansetron HCl (zoFRAN 4MG INJ) 4 mg ONCE ONCE IVP 11/18/24 17:00 11/18/24 17:01 DC 11/18/24 17:05 Sodium Chloride 1,000 ml @ 0 mls/hr ONCE ONCE IV 11/18/24 16:30 11/18/24 16:31 DC 11/18/24 17:06 Vital Signs Date Time Temp Pulse Resp B/P (MAP) Pulse Ox O2 Delivery O2 Flow Rate FiO2 11/18/24 18:01 97.9 90 20 108/63 99 Room Air* 0 21 11/18/24 16:02 97.3 100 20 104/58 Room Air DX & DISP Disposition: Discharge Departure Impression: Primary Impression: Vertigo Additional Impression: Uncontrolled diabetes mellitus Condition: Stable Additional Instructions: Your blood work today is stable. Your symptoms most likely related to your history of vertigo. You were given a list of local primary care doctors that you can follow up with outpatient. Have given you a follow up with Neurology for outpatient management. Referrals: RADHA HENRIQUEZ MD (PCP) ALIX RICK MD Time of Disposition: 17:51 I have reviewed the case, and I agree with, Diagnosis and Plan I performed the substantive portion of the visit. I have reviewed and personally made and approve the management plan that is documented in the note by myself or the NANI. I acknowledge for responsibility for the patient's management plan. ANDREW EATON Nov 18, 2024 17:52
--- NOTE | 2024-11-18 17:56 | NUR ---
READY FOR DISCHARGE AFTER IV FLUIDS.
[2024-11-18 18:01] VITALS: BP 108/63; PULSE 90; RESP 20; TEMP 97.9; O2SAT 99
== END 2024-11-18 18:09 | disposition home or self-care (01) ==
LOC: EDH 16:00
DX: R42 Dizziness and giddiness (principal); E11.65 Type 2 diabetes mellitus with hyperglycemia; I10 Essential (primary) hypertension; Z79.4 Long term (current) use of insulin
CPT/HCPCS: 99283; 96374; 96361; 80048; 85025; 36415; J7030; J2405